=== PATIENT | male | born 1995 | race Hispanic/Latino ===

== ENCOUNTER 2023-07-01 09:35 | Emergency (ER) | payer OTHER ==
[2023-07-01] MEDS ORDERED: Ibuprofen 200 MG TAB ONE (10:10)
== END 2023-07-01 11:06 | disposition home or self-care (01) ==
LOC: CSHERS 09:35
DX: J06.9 Acute upper respiratory infection, unspecified (principal); Z20.822 Contact with and (suspected) exposure to COVID-19
CPT/HCPCS: 71045; 87635; 87804; 93005